=== PATIENT | female | born 1995 | race Caucasian/White ===

== ENCOUNTER 2021-09-01 22:12 | Inpatient (IN) ==
[2021-09-01] MEDS ORDERED: BUTORPHANOL 2 MG/ML VIAL IV PRN (22:23)
[2021-09-01] MEDS ORDERED: ONDANSETRON 4 MG/2 ML VIAL IV PRN (22:23)
[2021-09-01 22:58] LABS: Basophils % 0.1 % (0.0-0.8); Eosinophils # 0.1 10*3/uL (0.0-0.87); Eosinophils % 0.6 % (0.00-10.9); Hematocrit 32.9 VOL% (35.7-47.0); Hemoglobin 11.2 GM/DL (12.0-16.0); Immature Granulocytes % 0.7 %; Immature Granulocytes Absolute 0.08 #; Lymphocytes # 2.1 10*3/uL (1.4-4.0); Lymphocytes % 18.5 % (21.3-54.2); Mean Corpuscular Volume 83.7 FL (87-102); Mean Platelet Volume 9.2 FL (9.6-12.0); Monocytes % 7.2 % (1.7-12.7); Neutrophils % 72.9 % (38.7-73.9); Platelet Count 296 T/CUMM (130-400); Red Blood Count 3.93 MC/CUMM (3.8-5.5); Red Cell Distribution Width 13.1 % (9.3-17.3); White Blood Count 11.4 T/CUMM (4-12)
[2021-09-01 23:15] LABS: Alanine Aminotransferase 23 U/L (13-56); Albumin 2.3 G/DL (3.4-5.0); Alkaline Phosphatase 136 U/L (45-117); Aspartate Amino Transferase 17 U/L (0-37); Bilirubin,Total < 0.39 MG/DL (0.20-1.00); Blood Urea Nitrogen 8 MG/DL (7-18); Carbon Dioxide 19 MMOL/L (21-32); Estimated Glom Filtration Rate 167 ML/MIN; Glucose 130 MG/DL (74-106); Osmolality,Calculated 276.5 MOS/KG (273-304); Potassium 3.5 MMOL/L (3.5-5.1); Sodium 139 MMOL/L (136-145); Total Protein 6.3 G/DL (6.4-8.2)
[2021-09-02] MEDS: LACTATED RINGERS 1,000 ML IV SCH ×2 (04:22→10:20)
[2021-09-02] MEDS ORDERED: OXYTOCIN/LR 20 UNIT/1,000 ML BAG IV SCH (04:30)
[2021-09-02] MEDS: MEPERIDINE 50 MG/1 ML VIAL IV PRN ×2 (05:55→08:51)
[2021-09-02] MEDS ORDERED: PROMETHAZINE 25 MG/1 ML VIAL IM ONE (07:45)
[2021-09-02] MEDS ORDERED: diphenhydrAMINE 50 MG/1 ML VIAL IV PRN ×2 (07:45)
[2021-09-02] MEDS ORDERED: NALOXONE 0.4 MG/ML VIAL IV PRN (07:45)
[2021-09-02] MEDS ORDERED: ONDANSETRON 4 MG/2 ML VIAL IV ONE (07:45)
[2021-09-02] MEDS ORDERED: ePHEDrine 50 MG/ML VIAL IV PRN (07:45)
[2021-09-02] MEDS ORDERED: CITRIC ACID/SODIUM CITRATE 30 ML UDCUP PO ONE (07:45)
[2021-09-02] MEDS ORDERED: hydrOXYzine HCL 25 MG/1 ML VIAL IM PRN (07:45)
[2021-09-02] MEDS ORDERED: FAMOTIDINE 20 MG/2 ML VIAL IV ONE (07:45)
[2021-09-02] MEDS ORDERED: fentaNYL 2 MCG/ROPIV 0.2% EPID 100 ML EPIDURAL SCH (08:00)
[2021-09-02 11:39] LABS: Bilirubin,Urine Negative (Negative); Blood, Urine Negative (Negative); Glucose,Urine (UA) Negative (Negative); Ketones,Urine Negative (Negative); Mucus,Urine Moderate /LPF (Occasional); Nitrite,Urine Negative (Negative); Protein,Urine Negative (Negative); RBC,Urine 1 /HPF (0-4); Urine Appearance Clear (Clear); Urine Color Light Yellow (Yellow); Urine Specific Gravity 1.015 (1.001-1.035); Urine Urobilinogen 0.2 eU/dL (<2.0)
[2021-09-02] MEDS ORDERED: TRANEXAMIC ACID 1,000 MG/10 ML VIAL ONE (13:19)
[2021-09-02] MEDS ORDERED: SODIUM CHLORIDE 0.9% 0 ML IV ONE (13:19)
[2021-09-02] MEDS ORDERED: miSOPROStoL 200 MCG TABLET ONE (13:19)
[2021-09-02] MEDS ORDERED: METHYLERGONOVINE 0.2 MG/1 ML AMP ONE (13:20)
[2021-09-02] MEDS ORDERED: CARBOPROST TROMETHAMINE 250 MCG/ML AMP IM ONE (13:20)
[2021-09-02 14:19] LABS: Cord Arterial Blood HCO3 19.1 MMOL/L
[2021-09-02 14:22] LABS: Cord Venous Blood HCO3 21.7 MMOL/L; Cord Venous Blood PCO2 43.8 MMHG; Cord Venous Blood PO2 31.9
[2021-09-02] MEDS ORDERED: OXYTOCIN/LR 20 UNIT/1,000 ML BAG IV ONE ×2 (16:22→18:15)
[2021-09-02] MEDS ORDERED: BENZOCAINE 20%/MENTHOL 0.5% SPRAY 56 GM CAN TOP ONE (17:15)
[2021-09-02] MEDS ORDERED: IBUPROFEN 800 MG TABLET PO PRN (17:15)
[2021-09-02] MEDS ORDERED: DIPH/TET/ACEL PERT BOOSTER VACCINE 0.5 ML VIAL IM ONE (18:15)
[2021-09-02] MEDS ORDERED: oxyCODONE/ACETAMINOPHEN 5-325 MG TABLET PO PRN (18:15)
[2021-09-02] MEDS ORDERED: BISACODYL 10 MG SUPP RECTAL PRN (18:15)
[2021-09-02] MEDS ORDERED: ONDANSETRON 4 MG/2 ML VIAL IV PRN (18:15)
[2021-09-02] MEDS ORDERED: MEASLES/MUMPS/RUBELLA VACCINE 0.5 ML VIAL SUBCUT ONE (18:15)
[2021-09-02] MEDS ORDERED: WITCH HAZEL PADS 100/JAR TOP PRN (18:15)
[2021-09-02] MEDS ORDERED: ACETAMINOPHEN 325 MG TABLET PO PRN (18:15)
[2021-09-02] MEDS ORDERED: LANOLIN 50% CREAM 0.3 OZ TUBE TOP PRN (18:15)
[2021-09-02] MEDS ORDERED: HYDROCORTISONE 2.5% RECTAL CREAM 30 GM TUBE TOP PRN (18:15)
[2021-09-02] MEDS ORDERED: RHO(D) IMMUNE GLOBULIN 300 MCG SYRINGE IM ONE (18:15)
[2021-09-02] MEDS ORDERED: BENZOCAINE 20%/MENTHOL 0.5% SPRAY 56 GM CAN TOP PRN (18:15)
[2021-09-02] MEDS: oxyCODONE/ACETAMINOPHEN 5-325 MG TABLET PO PRN (18:44)
[2021-09-02] MEDS: DOCUSATE SODIUM 100 MG CAPSULE PO SCH (20:59)
[2021-09-03] MEDS: oxyCODONE/ACETAMINOPHEN 5-325 MG TABLET PO PRN ×2 (03:37→09:21)
[2021-09-03 05:59] LABS: Basophils % 0.2 % (0.0-0.8); Eosinophils # 0.1 10*3/uL (0.0-0.87); Eosinophils % 0.8 % (0.00-10.9); Hematocrit 35.3 VOL% (35.7-47.0); Hemoglobin 11.5 GM/DL (12.0-16.0); Immature Granulocytes % 0.5 %; Immature Granulocytes Absolute 0.05 #; Lymphocytes # 2.1 10*3/uL (1.4-4.0); Lymphocytes % 19.2 % (21.3-54.2); Mean Corpuscular HGB Conc 32.6 GM/DL (32-36); Mean Corpuscular Volume 85.7 FL (87-102); Mean Platelet Volume 9.6 FL (9.6-12.0); Monocytes % 7.4 % (1.7-12.7); Neutrophils % 71.9 % (38.7-73.9); Platelet Count 280 T/CUMM (130-400); Red Blood Count 4.12 MC/CUMM (3.8-5.5); Red Cell Distribution Width 13.3 % (9.3-17.3); White Blood Count 10.9 T/CUMM (4-12)
[2021-09-03] MEDS: DOCUSATE SODIUM 100 MG CAPSULE PO SCH ×3 (09:15→23:10)
[2021-09-03] MEDS: IBUPROFEN 800 MG TABLET PO PRN ×2 (09:21→18:02)
[2021-09-04] MEDS: IBUPROFEN 800 MG TABLET PO PRN (04:36)
[2021-09-04] MEDS: oxyCODONE/ACETAMINOPHEN 5-325 MG TABLET PO PRN (06:50)
[2021-09-04 07:10] VITALS: BP 132/74
[2021-09-04] MEDS: DOCUSATE SODIUM 100 MG CAPSULE PO SCH (09:26)
== END 2021-09-04 11:40 | disposition home or self-care (01) | DRG 807 ==
LOC: N.LDOUT 22:12 → N.LD 22:15 → N.OB 09-02 17:30
PROVIDERS: ADMIT Specialist; ATTEND Specialist